=== PATIENT | female | born 1955 | race Two or more races ===

== ENCOUNTER → 2016-11-14 | Outpatient (CLI) | payer MEDICAID ==
[~2016-11-14] MED LIST: ACETAMINOPHEN PO; ACTOS15 MG PO; ALBUTEROL17 GM IH; ALBUTEROL17 GM INH; AMITRYPTYLINE PO; APRESOLINE PO; ARTHRITIS PAIN650 M3 PO; AUGMENTIN PO; BACTRIM DS TABL1 TAB PO; BENTYL20 MG PO; CALCIUM + D 6001 TA1 PO; CALCIUM 500 MG1 TAB PO; CAPTOPRIL PO; CAPTOPRIL25 MG PO; CELEXA PO; CIPRO250 MG PO; DICYCLOMINE HCL20 MG; DICYCLOMINE HCL20 MG PO; FISH OIL 1,0001 CAP PO; FISH OIL 1,2001 CAP PO; FLAGYL250 M1 PO; FLONASE 0.05% N16 G1; FLONASE16 GM; GABAPENTIN300 MG PO; GLUCOPHAGE500 MG PO; HCTZ PO; HYDROCHLOROTHIA25 MG PO; IMITREX25 MG PO; K-DUR20 ME1 PO; KCL; KLOR-CON PO; LASIX; LASIX PO; LEVSIN PO; LIPITOR PO; LIPITOR40 MG PO; LISINOPRIL5 MG PO; LOMOTIL TABLET1 TAB PO; LOPID600 MG PO; LOPRESSOR PO; LORTAB 5/500 TA1 TA1 PO; MACROBID 100 M100 MG PO; MEDROL4 MG/DOSE- PO; METFORMIN; METFORMIN HCL500 M1 PO; METOPROLOL TAR25 MG PO; MIRALAX17 G1 PO; MUCINEX DM ER1 EACH PO; MULTI VITAMIN1 EACH PO; MULTIVITAMIN1 UDCAP PO; NEURONTIN; NEURONTIN100 MG PO; OMEGA-3 FISH1200 MG PO; OMEPRAZOLE20 M2 PO; PREDNISONE PO; PRILOSEC PO; PRILOSEC20 MG PO; PROTONIX PO; SAVELLA50 MG PO; SEVELLA PO; SLOW-MAG64 MG; SYNTHROID PO; SYSTANE 0.3-0.415 ML OU; SYSTANE ULTRA 010 ML OP; TOPROL XL PO; TRAMADOL HCL50 M2 PO; TUMERIC PO; TYLOX1 CAP 5/50 PO; ZOLOFT PO
--- NOTE | ~2016-11-14 | MY29 ---
[facility] A Service of [facility] RADIOLOGY TEXT RESULTS PATIENT: LOLITA SADLER LOCATION: [facility] : 51 UNIT #: [id number] AGE: [address]: Rae Rees MD SEX: F ORDER DR: [id number] [facility]. [place], [place] [address] [id number] O MR#: [id number] Acc #: [id number] NAME: LOLITA SADLER : 1955 SEX: F STUDY DATE/TIME: 11/14/2016 14:37 UNIT: [facility] ROOM: STUDY DESCRIPTION: MY [facility] SCREENING W/ CAD BILAT Attending Physician: Rae Rees M.D. Ordering Physician: Rae Rees M.D. Primary Care Physician: Rae Rees M.D. MEDICAL IMAGING REPORT This report is preliminary unless electronic signature is present EXAM Bilateral digital screening mammogram with CAD, 11/14/16. INDICATIONS 61-year-old female for routine screening. No reported problems. No personal or family history of breast cancer. No surgeries. TECHNIQUE CC and MLO views were obtained and reviewed with an FDA-approved CAD device COMPARISON 05/18/2012, 11/20/2010, 07/28/2009 FINDINGS Breast parenchyma is composed of scattered fibroglandular densities and unchanged. There is no new dominant nodule, mass or suspicious cluster of microcalcifications. Benign calcifications are present. IMPRESSION Benign screening mammogram with followup recommended. Patients over the age of 40 are entered into a reminder system with target due date for the next mammogram. BIRADS: 2 Benign finding. Dictated by... Francesco Appiah M.D. THIS IS AN ELECTRONICALLY VERIFIED REPORT Francesco Appiah M.D. at 11/15/2016 8:29 AM THOR/roseline [facility] A Service of [facility] RADIOLOGY TEXT RESULTS PATIENT: LOLITA SADLER LOCATION: [facility] : 51 UNIT #: [id number] AGE: [address]: Rae Rees MD SEX: F ORDER DR: TD: 11/15/2016 07:00 JOB #: [id number] MEDICAL IMAGING REPORT Page 1 of 1 COPY
== END | disposition home or self-care (01) ==
LOC: CWCC 14:15
DX: Z12.31 Encounter for screening mammogram for malignant neoplasm of breast (principal)
CPT/HCPCS: G0202